=== PATIENT | male | born 1955 | race Caucasian/White ===

== ENCOUNTER 2023-05-31 00:44 | Emergency (ER) | payer MEDICARE, OTHER ==
[~2023-05-31] VITALS: Ht 180.3 cm; Wt 75.7 kg
[2023-05-31] MEDS ORDERED: PERM60CR4 TP (01:17)
[2023-05-31 01:19] VITALS: BP 131/68; TEMP 98.1; O2SAT 98
== END 2023-05-31 01:24 | disposition home or self-care (01) ==
LOC: ER 00:48
DX: B86 Scabies (principal)